=== PATIENT | male | born 1960 | race Caucasian/White ===

== ENCOUNTER 2018-12-18 17:11 | Emergency (ER) | payer OTHER ==
[~2018-12-18] VITALS: Ht 167.6 cm; Wt 70.5 kg
[2018-12-18 17:14] VITALS: BP 155/96
[2018-12-18] MEDS ORDERED: ketorolac tromethamine 15mg/ml inj. IM ONE (17:45)
[2018-12-18] MEDS ORDERED: CYCL-1 PO (18:05)
== END 2018-12-18 18:25 | disposition home or self-care (01) ==
LOC: ER 17:11
DX: S16.1XXA Strain of muscle, fascia and tendon at neck level, initial encounter (principal); Z88.8 Allergy status to other drugs, medicaments and biological substances; Z79.899 Other long term (current) drug therapy; V89.2XXA Person injured in unspecified motor-vehicle accident, traffic, initial encounter; Y93.89 Activity, other specified; Y92.488 Other paved roadways as the place of occurrence of the external cause; Y99.8 Other external cause status
CPT/HCPCS: 71045; 72040; 96372; 99283; J1885

== ENCOUNTER 2020-10-04 07:37 | Emergency (ER) | payer MEDICAID, OTHER ==
[~2020-10-04] VITALS: Ht 167.6 cm; Wt 70.5 kg
[~2020-10-04 07:37] MED LIST: CYCL-1 PO
[2020-10-04] MEDS ORDERED: PRED20TA PO (08:31)
== END 2020-10-04 08:46 | disposition home or self-care (01) ==
LOC: ER 07:37
DX: U07.1 COVID-19 (principal); R05 Cough; Z88.8 Allergy status to other drugs, medicaments and biological substances; Z79.899 Other long term (current) drug therapy
CPT/HCPCS: 36415; 87635; 99283

== ENCOUNTER 2020-11-09 16:19 | Emergency (ER) | payer MEDICAID ==
[~2020-11-09] VITALS: Ht 167.6 cm; Wt 70.5 kg
[2020-11-09 16:24] VITALS: BP 140/67
[2020-11-09] MEDS ORDERED: triamcinolone acetonide 40mg/ml inj IM ONE (17:30)
== END 2020-11-09 18:02 | disposition home or self-care (01) ==
LOC: ER 16:20
DX: J30.2 Other seasonal allergic rhinitis (principal); J02.9 Acute pharyngitis, unspecified; Z88.6 Allergy status to analgesic agent; Z79.899 Other long term (current) drug therapy
CPT/HCPCS: 96372; 99283; J3301

== ENCOUNTER 2020-12-17 08:54 | Emergency (ER) | payer MEDICAID ==
[~2020-12-17] VITALS: Ht 167.6 cm; Wt 74.0 kg
[2020-12-17 10:30] VITALS: BP 145/89
== END 2020-12-17 11:35 | disposition home or self-care (01) ==
LOC: ER 08:55
DX: E03.9 Hypothyroidism, unspecified (principal); Z88.6 Allergy status to analgesic agent; Z88.5 Allergy status to narcotic agent; Z79.899 Other long term (current) drug therapy
CPT/HCPCS: 36415; 84443; 93005; 99284

== ENCOUNTER 2021-01-02 17:47 | Emergency (ER) | payer MEDICAID ==
[~2021-01-02] VITALS: Ht 167.6 cm; Wt 70.5 kg
[2021-01-02 18:10] VITALS: BP 123/77
[2021-01-02 18:41] LABS: BASOPHILS % (AUTO) 0.1 % (0-1); EOSINOPHILS % (AUTO) 0.1 % (0-6); HEMATOCRIT 44.9 % (42.0-52.0); HEMOGLOBIN 15.3 g/dl (14.0-17.9); LYMPHOCYTES # (AUTO) 0.5 X10'3 (1.1-4.8); LYMPHOCYTES % (AUTO) 7.4 % (21-51); MEAN CORPUSCULAR HEMOGLOBIN 31.4 PG (27.0-31.0); MEAN CORPUSCULAR HGB CONC 34.1 g/dL (33.0-36.5); MEAN CORPUSCULAR VOLUME 92.1 FL (78-98); MEAN PLATELET VOLUME 8.9 FL (7.4-10.4); MONOCYTES # (AUTO) 0.4 X10'3 (0-0.9); MONOCYTES % (AUTO) 6.2 % (2-12); NEUTROPHILS # (AUTO) 5.7 X10'3 (1.8-7.7); NEUTROPHILS % (AUTO) 86.2 % (42-75); PLATELET COUNT 158 X10'3 (140-440); RED BLOOD COUNT 4.88 X10'6 (4.70-6.10); WHITE BLOOD COUNT 6.6 X10'3 (4.5-11.0)
[2021-01-02 18:54] LABS: ALANINE AMINOTRANSFERASE 25 U/L (12-78); ALBUMIN 3.3 G/DL (3.4-5.0); ALBUMIN/GLOBULIN RATIO 0.8 (1.1-1.5); ALKALINE PHOSPHATASE 79 IU/L (46-116); ANION GAP 7 (8-16); ASPARTATE AMINO TRANSFERASE 24 U/L (10-37); BILIRUBIN,TOTAL 0.7 MG/DL (0.1-1.0); BLOOD UREA NITROGEN 21 MG/DL (7-18); BUN/CREATININE RATIO 19.6 (5.4-32.0); CALCIUM 8.1 MG/DL (8.5-10.1); CHLORIDE 98 MMOL/L (99-107); CREATININE 1.07 MG/DL (0.60-1.10); GLUCOSE 141 MG/DL (70-104); LIPASE 65 U/L (73-393); POTASSIUM 3.3 MMOL/L (3.5-5.1); SODIUM 135 MMOL/L (135-145); TOTAL CARBON DIOXIDE 30.1 MMOL/L (24-32); TOTAL PROTEIN 7.7 G/DL (6.4-8.2); eGFR 70 ML/MIN
[2021-01-02 19:18] LABS: CLARITY,URINE CLEAR (Clear); COLOR,URINE YELLOW (Yellow); GLUCOSE, URINE NEGATIVE (Neg); KETONES,URINE NEGATIVE (Neg); LEUKOCYTE ESTERASE ,URINE NEGATIVE (Neg); NITRITES, URINE NEGATIVE (Neg); OCCULT BLOOD,URINE NEGATIVE (Neg); PH,URINE 7.5 (4.8-8.0); PROTEIN,URINE TRACE mg/dl (Neg)
[2021-01-02 19:21] LABS: UA COLLECTION TYPE CLN CATCH MIDSTREAM
[2021-01-02 19:26] LABS: BACTERIA,URINE NONE SEEN /HPF (Neg); MUCUS STRANDS FEW /LPF (Neg); RBC,URINE 0-2 /HPF (0-2); SQUAMOUS EPITHELIAL CELL,UR FEW /LPF (FEW); WBC,URINE 0-4 /HPF (0-4)
== END 2021-01-02 23:25 | disposition left against medical advice (07) ==
LOC: ER 17:48
DX: R11.10 Vomiting, unspecified (principal); Z53.21 Procedure and treatment not carried out due to patient leaving prior to being seen by health care provider
CPT/HCPCS: 36415; 80053; 81001; 83690; 85025

== ENCOUNTER 2022-04-14 09:12 | Emergency (ER) | payer MEDICAID ==
[~2022-04-14] VITALS: Ht 167.6 cm; Wt 70.5 kg
[2022-04-14 09:32] LABS: BASOPHILS % (AUTO) 0.3 % (0-1); EOSINOPHILS # (AUTO) 0.1 X10'3 (0-0.9); EOSINOPHILS % (AUTO) 1.2 % (0-6); HEMATOCRIT 43.2 % (42.0-52.0); HEMOGLOBIN 14.9 g/dl (14.0-17.9); LYMPHOCYTES # (AUTO) 1.6 X10'3 (1.1-4.8); LYMPHOCYTES % (AUTO) 18.3 % (21-51); MEAN CORPUSCULAR HEMOGLOBIN 31.3 PG (27.0-31.0); MEAN CORPUSCULAR HGB CONC 34.5 g/dL (33.0-36.5); MEAN CORPUSCULAR VOLUME 90.6 FL (78-98); MEAN PLATELET VOLUME 9.4 FL (7.4-10.4); MONOCYTES # (AUTO) 0.5 X10'3 (0-0.9); MONOCYTES % (AUTO) 6.3 % (2-12); NEUTROPHILS # (AUTO) 6.4 X10'3 (1.8-7.7); NEUTROPHILS % (AUTO) 73.9 % (42-75); PLATELET COUNT 147 X10'3 (140-440); RED BLOOD COUNT 4.77 X10'6 (4.70-6.10); RED CELL DISTRIBUTION WIDTH 13.3 % (11.5-14.5); WHITE BLOOD COUNT 8.7 X10'3 (4.5-11.0)
[2022-04-14 09:48] LABS: ALANINE AMINOTRANSFERASE 27 U/L (12-78); ALBUMIN 3.7 G/DL (3.4-5.0); ALBUMIN/GLOBULIN RATIO 0.9 (1.1-1.5); ALKALINE PHOSPHATASE 100 IU/L (46-116); ANION GAP 6 (8-16); ASPARTATE AMINO TRANSFERASE 27 U/L (10-37); BILIRUBIN,TOTAL 0.6 MG/DL (0.1-1.0); BLOOD UREA NITROGEN 14 MG/DL (7-18); BUN/CREATININE RATIO 10.9 (5.4-32.0); CALCIUM 8.9 MG/DL (8.5-10.1); CHLORIDE 102 MMOL/L (99-107); CREATININE 1.29 MG/DL (0.60-1.10); GLUCOSE 122 MG/DL (70-104); POTASSIUM 3.8 MMOL/L (3.5-5.1); SODIUM 138 MMOL/L (135-145); TOTAL CARBON DIOXIDE 30.2 MMOL/L (24-32); TOTAL PROTEIN 7.9 G/DL (6.4-8.2); eGFR 56 ML/MIN
[2022-04-14 09:49] LABS: LIPASE 96 U/L (73-393)
[2022-04-14 09:54] LABS: CLARITY,URINE SLIGHTLY CLOUDY (Clear); COLOR,URINE YELLOW (Yellow); GLUCOSE, URINE NEGATIVE (Neg); KETONES,URINE NEGATIVE (Neg); LEUKOCYTE ESTERASE ,URINE NEGATIVE (Neg); NITRITES, URINE NEGATIVE (Neg); OCCULT BLOOD,URINE SMALL (Neg); PROTEIN,URINE NEGATIVE (Neg); UROBILINOGEN,URINE 0.2 E.U/dL (0.2-1.0)
[2022-04-14 10:04] LABS: UA COLLECTION TYPE VOIDED
[2022-04-14 10:08] LABS: RBC,URINE 0-2 /HPF (0-2)
[2022-04-14 10:09] LABS: AMORPHOUS PHOSPHATES 4+; BACTERIA,URINE NONE SEEN /HPF (Neg); SQUAMOUS EPITHELIAL CELL,UR NONE SEEN /LPF (FEW); WBC,URINE 0-4 /HPF (0-4)
[2022-04-14] MEDS ORDERED: ketorolac trometh. 30mg/ml inj. IV ONE (11:40)
[2022-04-14] MEDS ORDERED: normal saline 1000ML IV soln IVB ONE (11:40)
[2022-04-14] MEDS ORDERED: FLO0.4C PO (13:17)
[2022-04-14] MEDS ORDERED: HYDR-3965 PO (13:17)
[2022-04-14] MEDS ORDERED: oxyCODONE/APAP 5-325mg tablet PO ONE (13:55)
[2022-04-14] MEDS ORDERED: morphine 2 MG/ML inj. syringe IV ONE (13:55)
[2022-04-14 14:16] VITALS: BP 131/81
== END 2022-04-14 14:18 | disposition home or self-care (01) ==
LOC: ER 09:12
DX: N20.0 Calculus of kidney (principal); E07.9 Disorder of thyroid, unspecified; Z88.6 Allergy status to analgesic agent; Z88.5 Allergy status to narcotic agent; Z79.899 Other long term (current) drug therapy
CPT/HCPCS: 36415; 74176; 80053; 81001; 83690; 85025; 96361; 96374; 96375; 99284; J1885; J2270; J7030